=== PATIENT | female | born 1985 | race Caucasian/White ===

== ENCOUNTER 2016-11-05 19:25 | Emergency (ER) | payer OTHER ==
--- NOTE | 2016-11-05 21:35 | ED NURSING NOTES ---
Clinical Report - Nurses [facility] [address] [place] [address] 11/05/2016 19:27 Patient: NERIS HUNTER TRIAGE Acuity: LEVEL 3. --19:58 Shon Li R.N. 19:55 11/05/16. BP: 136/87. HR: 109. RR: 18. O2 saturation: 100%. Temp: 98.1 F. Pain level now 02/12. --19:58 Shon Li R.N. Chief Complaint: ABDOMINAL PAIN. 19:55 11/05/16. --22:32 Shon Li R.N. 19:58 11/05/16. --19:58 Shon Li R.N. Weight: 61.2 kg stated. Height/Length: 65 inches Per Patient. BMI: 22.5. --19:57 Shon Li R.N. Medications Cyclobenzaprine HCl Oral. --19:56 Shon Li R.N. Allergies No Known Drug Allergy. --19:56 Shon Li R.N. History ( Pt reports abd pain that started this am worse after eating). No vomiting, diarrhea or constipation. SOCIAL HX: Heavy tobacco smoker. Occasional alcohol use; consumes liquor. No drug use. --19:58 Shon Li R.N. PROBLEMS: OB History. . --19:57 Shon Li R.N. ADDITIONAL SURGERIES: Tubal Ligation. --19:57 Shon Li R.N. The following entry was struck by Shon Li R.N., 21:33 <<STRICKEN ENTRY-- TURP - Trans Urethral Resection of Prostate. --12:59 Shon Li R.N. --END STRIKE>>. Assessment The patient states feels better. --19:58 Shon Li R.N. Interventions ID and allergy band on patient. To treatment room. --19:58 Shon Li R.N. PHYSICAL ASSESSMENT 19:59 11/05/16. GENERAL / NEURO / PSYCH: Alert. Oriented X 4. Appears in no acute distress. RESPIRATORY: Respirations not labored. Breath sounds within normal limits. GI / : Abdominal tenderness. Bowel sounds within normal limits. SKIN: Skin is warm and dry. --19:59 Shon Li R.N. NURSING PROGRESS NOTES 20:09 11/05/2016 Site #1 started via IV in the right antecubital space with an 20g angiocath, with aseptic technique; one attempt. Blood drawn: rainbow set. Labeled in the presence of the patient and sent to the lab. Saline lock flushed with saline. --20:09 Shon Li R.N. 20:30 11/05/2016 Toradol IVP 30 mg given over 2 minute(s) via site #1. Allergies verified and confirmed 5 rights. IV patency established. IV site checked: no pain, redness, or swelling. IV flushed thoroughly pre- and post-medication administration. IVP given by RN. --20:30 Shon Li R.N. 20:34 11/05/16. BP: 121/73. HR: 100. RR: 18. O2 saturation: 100%. Pain level now 4/10. --20:34 Shon Li R.N. 22:00 11/05/2016 K-DUR (Potassium Chloride Elizabeth ER) PO Tablets 20 meq given. Allergies verified and confirmed 5 rights. --22:02 Alexandria Cabello R.N. DISPOSITION / DISCHARGE 22:03 11/05/2016 Site #1 removed upon discharge. Catheter intact. Manual pressure and bandage applied. --22:03 Alexandria Cabello R.N. 22:03 11/05/16. BP: 116/64. HR: 100. RR: 16. O2 saturation: 100% on room air. Temp: deferred. Lucero-Barroso pain scale: 4/10. --22:04 Alexandria Cabello R.N. Departure time: 2208. --22:11 Shon Li R.N. Locked/Released at 11/05/2016 22:32 by Shon Li R.N.
--- NOTE | 2016-11-05 21:35 | ED ORDER SUMMARY ---
..... Patient: NERIS HUNTER OrderSheet [facility] VisitID: [id number] [place] [address] 31y, F Registration Date/Time: 11/05/2016 ORDER SHEET Weight: 61.2 kg (stated) Allergies: No Known Drug Allergy GENERAL ORDERS: CBC w Diff Urgent (20:16 11/05/2016 DBeyer R.N. per protocol) (Ack 20:18 NHouse ER Tech1) (20:35 NHouse ER Tech1) CMP Urgent (20:16 11/05/2016 DBeyer R.N. per protocol) (Ack 20:18 NHouse ER Tech1) (20:35 NHouse ER Tech1) UA-Culture if indicated Urgent (20:16 11/05/2016 DBeyer R.N. per protocol) (Ack 20:18 NHouse ER Tech1) PT with INR Urgent (20:16 11/05/2016 DBeyer R.N. per protocol) (Ack 20:18 NHouse ER Tech1) (20:23 HBivens A.R.N.P.) (Cancelled: Other20:23 HBivens A.R.N.P.) Amylase Urgent (20:16 11/05/2016 DBeyer R.N. per protocol) (Ack 20:18 NHouse ER Tech1) (20:35 NHouse ER Tech1) Lipase Urgent (20:16 11/05/2016 DBeyer R.N. per protocol) (Ack 20:18 NHouse ER Tech1) (20:35 NHouse ER Tech1) Serum Quantitative Urgent (20:16 11/05/2016 DBeyer R.N. per protocol) (Ack 20:18 NHouse ER Tech1) (20:23 HBivens A.R.N.P.) (Cancelled: Other20:23 HBivens A.R.N.P.) Serum Qualitative Urgent (20:23 11/05/2016 HBivens A.R.N.P.) (Ack 20:25 NHouse ER Tech1) (20:35 NHouse ER Tech1) MEDICATION ORDERS: K-Dur PO 20 meq (Do not crush or chew, NOW) (21:36 11/05/2016 HBivens A.R.N.P.) (Ack 21:52 Ayo R.N.) (22:02 Ayo R.N.) IV FLUIDS: Toradol IV 30 mg (NOW) (20:23 11/05/2016 HBivens A.R.N.P.) (20:30 Sukumar R.N.) ORDER SHEET NOTES: [Electronically signed by Shon Li R.N. (22:32 11/05/2016)] [Electronically signed by Lorena MelaraNAmanPAman (22:50 11/05/2016)] [Electronically locked/signed by Shon Li R.N. (22:32 11/05/2016)]
--- NOTE | 2016-11-05 21:35 | ED CLINICAL REPORT ---
Clinical Report - Physicians/Mid Levels [facility] [address] [place] [address] 11/05/2016 19:27 Patient: NERIS HUNTER Time Seen: 2009; initial patient contact, initial documentation, patient care assumed. Arrived- By private vehicle. Historian- patient. HISTORY OF PRESENT ILLNESS Chief Complaint: ABDOMINAL PAIN. This started today and is still present. It was abrupt in onset and has been constant. At its maximum, severity described as moderate. When seen in the E.D., it was almost gone. Modifying factors- worsened by food. Not relieved by anything. It is described as "pain". No radiation. It is described as located in the left upper quadrant, left abdomen and left lower quadrant. No nausea, loss of appetite, vomiting or diarrhea. No additional abdominal pain. (pain came on this am after eating, and then felt a little better so ate pizza and pain came back). No recent travel. Similar symptoms previously: None. Recent medical care: Not recently seen/assessed. REVIEW OF SYSTEMS No constipation, black stools, hematemesis, difficulty with urination or pain with urination. No urinary frequency, bloody stools, fever, chest pain or difficulty breathing. All systems otherwise negative, except as recorded above. PAST HISTORY Negative. ADDITIONAL SURGERIES: Tubal Ligation. --12:54 Matilde Erickson, RRubens.. SOCIAL HISTORY Heavy tobacco smoker. Occasional alcohol use. No drug use. No recent travel. Is a local resident. FAMILY HISTORY Negative. ADDITIONAL NOTES The nursing notes have been reviewed with agreement regarding the chief complaint, HPI, ROS, PMH and patient medications and allergies. PHYSICAL EXAM Vital Signs: 11/05/2016 19:55 BP: 136/87. HR: 109. RR: 18. O2 saturation: 100%. Temp: 98.1 F. Have been reviewed as abnormal and appear to be correct. Blood pressure normal. Tachycardic. Respiratory rate normal. Temperature normal. Oxygen saturation normal. Appearance: Alert. Oriented X3. No acute distress. Eyes: Pupils equal, round and reactive to light. Eyes normal inspection. Neck: Normal inspection. Neck supple. CVS: Normal heart rate and rhythm. Heart sounds normal. Pulses normal. Respiratory: No respiratory distress. Breath sounds normal. Chest nontender. Abdomen: Soft and nontender. Bowel sounds normal. No organomegaly. No mass. Back: Normal inspection. Skin: Skin warm and dry. Normal skin color. No rash. Normal skin turgor. Extremities: Extremities exhibit normal ROM. No lower extremity edema. Neuro: Oriented X 3. No motor deficit. No sensory deficit. LABS, X-RAYS, AND EKG Laboratory Tests: CBC w Diff: (ALENA: 11/05/2016 20:00) ( MsgRcvd 11/05/2016 20:34) Final results Test Result Flag Units (Reference) WHITE BLOOD COUNT 10.7 K/uL (4.5-11.5) RED BLOOD COUNT 4.50 M/uL (4.00-5.20) HEMOGLOBIN 11.9 L gm/dL (12.0-16.0) HEMATOCRIT 36.8 % (36.0-46.0) MEAN CELL VOLUME 82 fL (80-100) MEAN CORPUSCULAR HGB 27 pg (26-34) MEAN CORPUSCULAR HGB CONC 33 g/dL (31-37) RED CELL DISTRIBUTION WIDTH 15.0 H % (11.6-14.8) PLATELET COUNT 254 K/uL (150-400) NEUTROPHIL % 73.1 % (50-75) LYMPH % 17.3 L % (25-40) MONO % 7.6 % (3-14) EOSINOPHIL % 1.6 % (0-4) BASOPHIL % 0.4 % (0-2) PT with INR: (ALENA: 11/05/2016 20:00) ( MsgRcvd 11/05/2016 20:34) Final results Test Result Flag Units (Reference) INR 1.0 (0.8-1.2) Low Intensity Therapy: INR 1.5-2.0 PT range 18.5-23.1Mod.Intensity Therapy: INR 2.0-3.0 PT range 23.1-31.5High Intensity Therapy: INR 2.5-3.5 PT range 27.4-35.5High Intensity Therapy 2: INR 3.0-4.0 PT range 31.5-39.3 CMP: (ALENA: 11/05/2016 20:00) ( MsgRcvd 11/05/2016 20:48) Final results Test Result Flag Units (Reference) GLUCOSE 75 mg/dL (70-110) BUN 13 mg/dL (7-18) CREATININE 0.7 mg/dL (0.6-1.3) Estimated GFR >60 mL/min Estimated GFR- >60 mL/min Note: Persistent reduction over 3 months in eGFR<60 mL/min/1.73 m2 defines CKD. Patients with eGFR values>=60 mL/min/1.73 m2 may also have CKD if evidence ofpersistent proteinuria. Additional information may be foundat www.kidney.org. SODIUM 142 mmol/L (136-145) POTASSIUM 3.3 L mmol/L (3.5-5.1) CHLORIDE 104 mmol/L (98-107) CARBON DIOXIDE 30 mmol/L (21-32) CALCIUM 8.9 mg/dL (8.5-10.1) TOTAL PROTEIN 6.8 g/dL (6.4-8.2) ALBUMIN 3.7 g/dL (3.3-5.0) BILIRUBIN, TOTAL 0.3 mg/dL (0.0-1.0) ALKALINE PHOSPHATASE 48 U/L (46-116) AST (SGOT) 12 L U/L (15-37) ALT (SGPT) 25 U/L (12-78) LIPASE 139 U/L (73-393) AMYLASE 37 U/L (25-115) BETA HCG, QUANTITATIVE 94 mIU/mL REFERENCE RANGE:Adult Males: <2 mIU/mLNon- Females: <6 mIU/mL Females:Approximate Approximate hCGGestational Age Range (mIU/mL) 0-1 week 0-501-2 weeks 40-3002-3 weeks 100-13773-0 weeks 500-28157-9 months 5,000-200,0002-3 months 10,000-100,0002nd trimester 3,000-50,0003rd trimester 1,000-50,000 . PROGRESS AND PROCEDURES Patient counseled in person regarding the patient's stable condition, test results and diagnosis. 21:34. Differential Diagnosis: I considered gastritis, gastroenteritis, peptic ulcer disease, gastroesophageal reflux disease, colon cancer, hernia, and viral syndrome as a possible cause of abdominal pain in this patient. This is a partial list of diagnoses considered. Above considerations are based on history, physical exam and laboratory data. Differential diagnosis was discussed with patient. Disposition: Discharged home in good and improved condition (21:35). Condition: good and stable. CLINICAL IMPRESSION Acute left upper quadrant and left lower quadrant abdominal pain of undetermined cause. INSTRUCTIONS Warnings: GENERAL WARNINGS: Return or contact your physician immediately if your condition worsens or changes unexpectedly, if not improving as expected, or if other problems arise. SPECIFICALLY, return if you develop pain in the abdomen or pelvis, fever, the inability to keep fluids down, blood in vomitus, blood in diarrhea, fainting or lightheadedness. Prescription Medications: Pepcid 20 mg tablets: Take 1 orally every 12 hours. Dispense thirty (30). No refills. Substitution is permissible. Bentyl 20 mg tablets: take 1 orally every 6 hours as needed. Dispense thirty (30). No refills. Substitution is permissible. Follow-up: Follow up with your doctor in about two days even if well. Call for an appointment. Summary of care provided to patient. Understanding of the discharge instructions verbalized by patient. (Electronically signed by Lorena Melara A.R.N.P. 11/05/2016 22:50)
--- NOTE | 2016-11-05 21:35 | ED ORDER SUMMARY ---
..... Patient: NERIS HUNTER OrderSheet [facility] VisitID: [id number] [place] [address] 31y, F Registration Date/Time: 11/05/2016 ORDER SHEET Weight: 61.2 kg (stated) Allergies: No Known Drug Allergy GENERAL ORDERS: CBC w Diff Urgent (20:16 11/05/2016 DBeyer R.N. per protocol) (Ack 20:18 NHouse ER Tech1) (20:35 NHouse ER Tech1) CMP Urgent (20:16 11/05/2016 DBeyer R.N. per protocol) (Ack 20:18 NHouse ER Tech1) (20:35 NHouse ER Tech1) UA-Culture if indicated Urgent (20:16 11/05/2016 DBeyer R.N. per protocol) (Ack 20:18 NHouse ER Tech1) PT with INR Urgent (20:16 11/05/2016 DBeyer R.N. per protocol) (Ack 20:18 NHouse ER Tech1) (20:23 HBivens A.R.N.P.) (Cancelled: Other20:23 HBivens A.R.N.P.) Amylase Urgent (20:16 11/05/2016 DBeyer R.N. per protocol) (Ack 20:18 NHouse ER Tech1) (20:35 NHouse ER Tech1) Lipase Urgent (20:16 11/05/2016 DBeyer R.N. per protocol) (Ack 20:18 NHouse ER Tech1) (20:35 NHouse ER Tech1) Serum Quantitative Urgent (20:16 11/05/2016 DBeyer R.N. per protocol) (Ack 20:18 NHouse ER Tech1) (20:23 HBivens A.R.N.P.) (Cancelled: Other20:23 HBivens A.R.N.P.) Serum Qualitative Urgent (20:23 11/05/2016 HBivens A.R.N.P.) (Ack 20:25 NHouse ER Tech1) (20:35 NHouse ER Tech1) MEDICATION ORDERS: K-Dur PO 20 meq (Do not crush or chew, NOW) (21:36 11/05/2016 HBivens A.R.N.P.) (Ack 21:52 Ayo R.N.) (22:02 Ayo R.N.) IV FLUIDS: Toradol IV 30 mg (NOW) (20:23 11/05/2016 HBivens A.R.N.P.) (20:30 Sukumar R.N.) ORDER SHEET NOTES: [Electronically signed by Shon Li R.N. (22:32 11/05/2016)] [Electronically signed by Lorena MelaraNAmanPAman (22:50 11/05/2016)] [Electronically locked/signed by Shon Li R.N. (22:32 11/05/2016)]
--- NOTE | 2016-11-05 21:35 | ED NURSING NOTES ---
Clinical Report - Nurses [facility] [address] [place] [address] 11/05/2016 19:27 Patient: NERIS HUNTER TRIAGE Acuity: LEVEL 3. --19:58 Shon Li R.N. 19:55 11/05/16. BP: 136/87. HR: 109. RR: 18. O2 saturation: 100%. Temp: 98.1 F. Pain level now 02/12. --19:58 Shon Li R.N. Chief Complaint: ABDOMINAL PAIN. 19:55 11/05/16. --22:32 Shon Li R.N. 19:58 11/05/16. --19:58 Shon Li R.N. Weight: 61.2 kg stated. Height/Length: 65 inches Per Patient. BMI: 22.5. --19:57 Shon Li R.N. Medications Cyclobenzaprine HCl Oral. --19:56 Shon Li R.N. Allergies No Known Drug Allergy. --19:56 Shon Li R.N. History ( Pt reports abd pain that started this am worse after eating). No vomiting, diarrhea or constipation. SOCIAL HX: Heavy tobacco smoker. Occasional alcohol use; consumes liquor. No drug use. --19:58 Shon Li R.N. PROBLEMS: OB History. . --19:57 Shon Li R.N. ADDITIONAL SURGERIES: Tubal Ligation. --19:57 Shon Li R.N. The following entry was struck by Shon Li R.N., 21:33 <<STRICKEN ENTRY-- TURP - Trans Urethral Resection of Prostate. --12:59 Shon Li R.N. --END STRIKE>>. Assessment The patient states feels better. --19:58 Shon Li R.N. Interventions ID and allergy band on patient. To treatment room. --19:58 Shon Li R.N. PHYSICAL ASSESSMENT 19:59 11/05/16. GENERAL / NEURO / PSYCH: Alert. Oriented X 4. Appears in no acute distress. RESPIRATORY: Respirations not labored. Breath sounds within normal limits. GI / : Abdominal tenderness. Bowel sounds within normal limits. SKIN: Skin is warm and dry. --19:59 Shon Li R.N. NURSING PROGRESS NOTES 20:09 11/05/2016 Site #1 started via IV in the right antecubital space with an 20g angiocath, with aseptic technique; one attempt. Blood drawn: rainbow set. Labeled in the presence of the patient and sent to the lab. Saline lock flushed with saline. --20:09 Shon Li R.N. 20:30 11/05/2016 Toradol IVP 30 mg given over 2 minute(s) via site #1. Allergies verified and confirmed 5 rights. IV patency established. IV site checked: no pain, redness, or swelling. IV flushed thoroughly pre- and post-medication administration. IVP given by RN. --20:30 Shon Li R.N. 20:34 11/05/16. BP: 121/73. HR: 100. RR: 18. O2 saturation: 100%. Pain level now 4/10. --20:34 Shon Li R.N. 22:00 11/05/2016 K-DUR (Potassium Chloride Elizabeth ER) PO Tablets 20 meq given. Allergies verified and confirmed 5 rights. --22:02 Alexandria Cabello R.N. DISPOSITION / DISCHARGE 22:03 11/05/2016 Site #1 removed upon discharge. Catheter intact. Manual pressure and bandage applied. --22:03 Alexandria Cabello R.N. 22:03 11/05/16. BP: 116/64. HR: 100. RR: 16. O2 saturation: 100% on room air. Temp: deferred. Lucero-Barroso pain scale: 4/10. --22:04 Alexandria Cabello R.N. Departure time: 2208. --22:11 Shon Li R.N. Locked/Released at 11/05/2016 22:32 by Shon Li R.N.
--- NOTE | 2016-11-05 22:51 | ED MAR SUMMARY ---
..... Medication Administration Record [facility] [address] [place] [address] Patient: NERIS HUNTER Visit ID: [id number] 31y, F Weight: 61.2 kg Height/Length: 65 in BMI: 22.5 ALLERGIES: No Known Drug Allergy Given 20:30 11/05/2016 Shon Li, RAmanN. Medication Administered: TORADOL [IVP], Dose: 30 mg IVP over 2 minute(s), Site: #1 right AC. Medication Ordered: Toradol IV 30 mg (NOW). Given 22:00 11/05/2016 Alexandria Cabello, R.N. Medication Administered: K-DUR [PO] (POTASSIUM CHLORIDE JASON ER), Dose: 20 meq Tablets PO. Medication Ordered: K-Dur PO 20 meq (Do not crush or chew, NOW).
--- NOTE | 2016-11-05 22:51 | ED MAR SUMMARY ---
..... Medication Administration Record [facility] [address] [place] [address] Patient: NERIS HUNTER Visit ID: [id number] 31y, F Weight: 61.2 kg Height/Length: 65 in BMI: 22.5 ALLERGIES: No Known Drug Allergy Given 20:30 11/05/2016 Shon Li, RAmanN. Medication Administered: TORADOL [IVP], Dose: 30 mg IVP over 2 minute(s), Site: #1 right AC. Medication Ordered: Toradol IV 30 mg (NOW). Given 22:00 11/05/2016 Alexandria Cabello, R.N. Medication Administered: K-DUR [PO] (POTASSIUM CHLORIDE JASON ER), Dose: 20 meq Tablets PO. Medication Ordered: K-Dur PO 20 meq (Do not crush or chew, NOW).
--- NOTE | 2016-11-05 22:51 | ED DISCHARGE INSTRUCTIONS ---
Patient: NERIS HUNTER General Instructions [facility] VisitID: [id number] [place] [address] 31y, F Registration Date/Time: 11/05/2016 Acute left upper quadrant and left lower quadrant abdominal pain of undetermined cause. INSTRUCTIONS Warnings: GENERAL WARNINGS: Return or contact your physician immediately if your condition worsens or changes unexpectedly, if not improving as expected, or if other problems arise. SPECIFICALLY, return if you develop pain in the abdomen or pelvis, fever, the inability to keep fluids down, blood in vomitus, blood in diarrhea, fainting or lightheadedness. Prescription Medications: Pepcid 20 mg tablets: Take 1 orally every 12 hours. Dispense thirty (30). No refills. Substitution is permissible. Bentyl 20 mg tablets: take 1 orally every 6 hours as needed. Dispense thirty (30). No refills. Substitution is permissible. Follow-up: Follow up with your doctor in about two days even if well. Call for an appointment. Summary of care provided to patient. Understanding of the discharge instructions verbalized by patient. ADDITIONAL INFORMATION Abdominal Pain, Unknown Cause (Female) The exact cause of your abdominal (stomach) pain is not certain. This does not mean that this is something to worry about, or the right tests were not done. Everyone likes to know the exact cause of the problem, but sometimes with abdominal pain, there is no clear-cut cause, and this could be a good thing. The good news is that your symptoms can be treated, and you will feel better. Your condition does not seem serious now; however, sometimes the signs of a serious problem may take more time to appear. For this reason,it is important for you to watch for any new symptoms, problems,or worsening of your condition. Over the next few days, the abdominal pain may come and go, or be continuous. Other common symptoms can include nausea and vomiting. Sometimes it can be difficult to tell if you feel nauseous, you may just feel bad and not associate that feeling with nausea. Constipation, diarrhea, and a fever may go along with the pain. The pain may continue even if treated correctly over the following days. Depending on how things go, sometimes the cause can become clear and may require further or different treatment. Additional evaluations, medications, or tests may be needed. Home care Your health care provider may prescribe medications for pain, symptoms, or an infection. Follow the health care provider's instructions for taking these medications. General care Rest until your next exam. No strenuous activities. Try to find positions that ease discomfort. A small pillow placed on the abdomen may help relieve pain. Something warm on your abdomen (such as a heating pad) may help, but be careful not to burn yourself. Diet Do not force yourself to eat, especially if having cramps, vomiting, or diarrhea. Water is important so you do not get dehydrated. Soup may also be good. Sports drinks may also help, especially if they are not too acidic. Make sure you don't drink sugary drinks as this can make things worse. Take liquids in small amounts. Do not guzzle them. Caffeine sometimes makes the pain and cramping worse. Avoid dairy products if you have vomiting or diarrhea. Don't eat large amounts at a time. Wait a few minutes between bites. Eat a diet low in fiber (called a low-residue diet). Foods allowed include refined breads, white rice, fruit and vegetable juices without pulp, tender meats. These foods will pass more easily through the intestine. Avoid whole-grain foods, whole fruits and vegetables, meats, seeds and nuts, fried or fatty foods, dairy, alcohol and spicy foods until your symptoms go away. Follow-up care Follow up with your health care provider as instructed, or if your pain does not begin to improve in the next 24 hours. When to seek medical care Seek prompt medical care if any of the following occur: Pain gets worse or moves to the right lower abdomen New or worsening vomiting or diarrhea Swelling of the abdomen Unable to pass stool for more than three days Fever of 100.4F (38C) or higher, or as directed by your healthcare provider. Blood in vomit or bowel movements (dark red or black color) Jaundice (yellow color of eyes and skin) Weakness, dizziness Chest, arm, back, neck or jaw pain Unexpected vaginal bleeding or missed period Call 911 Call emergency services if any of the following occur: Trouble breathing Confusion Fainting or loss of consciousness Rapid heart rate Seizure Abdominal Pain,Possible Appendicitis [Repeat Exam, Female] Based on your visit today, the exact cause of your abdominal (stomach) pain is not certain. However, you do have some of the early signs of APPENDICITIS. Early in an appendix infection the symptoms can be similar to a simple "stomach ache" or "stomach flu". Therefore, the diagnosis can be hard to make. Since an appendix infection is a serious condition, it is important to know if this is the cause of your symptoms. WAITING for more time to pass and repeating the exam is the best way to find out whether you have appendicitis. Within the next 12-24 hours the cause of your stomach pain should become clear. It is important for you to watch for any new symptoms or worsening of your condition. (See below). Home Care: Rest until your next exam. No strenuous activities. Eat a diet low in fiber (called a low-residue diet). Foods allowed include refined breads, white rice, fruit and vegetable juices without pulp, tender meats. These foods will pass more easily through the intestine. Avoid whole-grain foods, whole fruits and vegetables, meats, seeds and nuts, fried or fatty foods, dairy, alcohol and spicy foods until your symptoms go away. In some cases, you may be asked not to eat or drink anything until you are re-examined. Return for another exam exactly as directed. Follow Up with your doctor or this facility as directed. Get Prompt Medical Attention if any of the following occur: Pain gets worse or moves to the right lower abdomen New or worsening vomiting or diarrhea Swelling of the abdomen Unable to pass stool for more than three days Fever of 100.4F (38C) or higher, or as directed by your healthcare provider Blood in vomit or bowel movements (dark red or black color) Weakness, dizziness or fainting Unexpected vaginal bleeding Famotidine Oral tablet What is this medicine? FAMOTIDINE (fa EDWARD rodgers) is a type of antihistamine that blocks the release of stomach acid. It is used to treat stomach or intestinal ulcers. It can also relieve heartburn from acid reflux. How should I use this medicine? Take this medicine by mouth with a glass of water. Follow the directions on the prescription label. If you only take this medicine once a day, take it at bedtime. Take your doses at regular intervals. Do not take your medicine more often than directed. Talk to your senior industrial engineer regarding the use of this medicine in children. Special care may be needed. What side effects may I notice from receiving this medicine? Side effects that you should report to your doctor or health manager critical care unit as soon as possible: agitation, nervousness confusion hallucinations skin rash, itching Side effects that usually do not require medical attention (report to your doctor or health manager critical care unit if they continue or are bothersome): constipation diarrhea dizziness headache What may interact with this medicine? delavirdine itraconazole ketoconazole What if I miss a dose? If you miss a dose, take it as soon as you can. If it is almost time for your next dose, take only that dose. Do not take double or extra doses. Where should I keep my medicine? Keep out of the reach of children. Store at room temperature between 15 and 30 degrees C (59 and 86 degrees F). Do not freeze. Throw away any unused medicine after the expiration date. What should I tell my health care provider before I take this medicine? They need to know if you have any of these conditions: kidney or liver disease trouble swallowing an unusual or allergic reaction to famotidine, other medicines, foods, dyes, or preservatives or trying to get breast-feeding What should I watch for while using this medicine? Tell your doctor or health manager critical care unit if your condition does not start to get better or if it gets worse. Finish the full course of tablets prescribed, even if you feel better. Do not take with aspirin, ibuprofen or other antiinflammatory medicines. These can make your condition worse. Do not smoke cigarettes or drink alcohol. These cause irritation in your stomach and can increase the time it will take for ulcers to heal. If you get black, tarry stools or vomit up what looks like coffee grounds, call your doctor or health manager critical care unit at once. You may have a bleeding ulcer. Dicyclomine Hydrochloride Oral tablet What is this medicine? DICYCLOMINE (dye LEO lu) is used to treat bowel problems including irritable bowel syndrome. How should I use this medicine? Take this medicine by mouth with a glass of water. Follow the directions on the prescription label. It is best to take this medicine on an empty stomach, 30 minutes to 1 hour before meals. Take your medicine at regular intervals. Do not take your medicine more often than directed. Talk to your senior industrial engineer regarding the use of this medicine in children. Special care may be needed. While this drug may be prescribed for children as young as 6 months of age for selected conditions, precautions do apply. Patients over 65 years old may have a stronger reaction and need a smaller dose. What side effects may I notice from receiving this medicine? Side effects that you should report to your doctor or health manager critical care unit as soon as possible: agitation, nervousness, confusion difficulty swallowing dizziness, drowsiness fast or slow heartbeat hallucinations pain or difficulty passing urine Side effects that usually do not require medical attention (report to your doctor or health manager critical care unit if they continue or are bothersome): constipation headache nausea or vomiting sexual difficulty What may interact with this medicine? amantadine antacids benztropine digoxin disopyramide medicines for allergies, colds and breathing difficulties medicines for alzheimer's disease medicines for anxiety or sleeping problems medicines for depression or psychotic disturbances medicines for diarrhea medicines for pain metoclopramide tegaserod What if I miss a dose? If you miss a dose, take it as soon as you can. If it is almost time for your next dose, take only that dose. Do not take double or extra doses. Where should I keep my medicine? Keep out of the reach of children. Store at room temperature below 30 degrees C (86 degrees F). Protect from light. Throw away any unused medicine after the expiration date. What should I tell my health care provider before I take this medicine? They need to know if you have any of these conditions: difficulty passing urine esophagus problems or heartburn glaucoma heart disease, or previous heart attack myasthenia gravis prostate trouble stomach infection, or obstruction ulcerative colitis an unusual or allergic reaction to dicyclomine, other medicines, foods, dyes, or preservatives or trying to get breast-feeding What should I watch for while using this medicine? You may get drowsy, dizzy, or have blurred vision. Do not drive, use machinery, or do anything that needs mental alertness until you know how this medicine affects you. To reduce the risk of dizzy or fainting spells, do not sit or stand up quickly, especially if you are an older patient. Alcohol can make you more drowsy, avoid alcoholic drinks. Stay out of bright light and wear sunglasses if this medicine makes your eyes more sensitive to light. Avoid extreme heat (hot tubs, saunas). This medicine can cause you to sweat less than normal. Your body temperature could increase to dangerous levels, which may lead to heat stroke. Antacids can stop this medicine from working. If you get an upset stomach and want to take an antacid, make sure there is an interval of at least 1 to 2 hours before or after you take this medicine. Your mouth may get dry. Chewing sugarless gum or sucking hard candy, and drinking plenty of water may help. Contact your doctor if the problem does not go away or is severe. You have been given the following additional information: Abdominal Pain, Unknown Cause, (Female) Abdominal Pain, Possible Appendicitis (Female) Famotidine Oral tablet Dicyclomine Hydrochloride Oral tablet (Electronically signed by Lorena Melara A.R.N.P. 11/05/2016 22:50)
--- NOTE | 2016-11-05 22:51 | ED MED RECONCILIATION SUMMARY ---
Patient: NERIS HUNTER Medication Reconciliation Report [facility] VisitID: [id number] [place] [address] 31y, F Registration Date/Time: 11/05/2016 Weight: 61.2 kg Height/Length: 65 in. BMI: 22.5 ALLERGIES: No Known Drug Allergy The patient's Home Medications are listed below: THE FOLLOWING MEDICATIONS NEED TO BE RECONCILED: Cyclobenzaprine HCl Oral The source(s) of the original Home Medication information: Not obtained. The following Medications were given to the patient in the Emergency Department: Toradol [IVP] IVP 30 mg, administered: 11/05/2016 8:30:00 PM K-DUR [PO] PO 20 meq, administered: 11/05/2016 10:00:00 PM The following Medications were prescribed to the patient: Pepcid 20 mg tablets: Take 1 orally every 12 hours. Dispense thirty (30). No refills. Substitution is permissible. -- Lorena Melara A.RAmanNAmanPAman Bentyl 20 mg tablets: take 1 orally every 6 hours as needed. Dispense thirty (30). No refills. Substitution is permissible. -- Lorena Melara A.RAmanN.P.
--- NOTE | 2016-11-05 22:51 | ED MED RECONCILIATION SUMMARY ---
Patient: NERIS HUNTER Medication Reconciliation Report [facility] VisitID: [id number] [place] [address] 31y, F Registration Date/Time: 11/05/2016 Weight: 61.2 kg Height/Length: 65 in. BMI: 22.5 ALLERGIES: No Known Drug Allergy The patient's Home Medications are listed below: THE FOLLOWING MEDICATIONS NEED TO BE RECONCILED: Cyclobenzaprine HCl Oral The source(s) of the original Home Medication information: Not obtained. The following Medications were given to the patient in the Emergency Department: Toradol [IVP] IVP 30 mg, administered: 11/05/2016 8:30:00 PM K-DUR [PO] PO 20 meq, administered: 11/05/2016 10:00:00 PM The following Medications were prescribed to the patient: Pepcid 20 mg tablets: Take 1 orally every 12 hours. Dispense thirty (30). No refills. Substitution is permissible. -- Lorena Melara A.RAmanNAmanPAman Bentyl 20 mg tablets: take 1 orally every 6 hours as needed. Dispense thirty (30). No refills. Substitution is permissible. -- Lorena Melara A.RAmanN.P.
== END 2016-11-05 22:09 | disposition home or self-care (01) ==
LOC: ED SRH 19:25
DX: R10.12 Left upper quadrant pain (principal); R10.32 Left lower quadrant pain; F17.210 Nicotine dependence, cigarettes, uncomplicated; Z98.51 Tubal ligation status
CPT/HCPCS: 90100; 90197; 92235; 92530; 94060; 95059